=== PATIENT | male | born 1945 | race Caucasian/White ===

== ENCOUNTER 2020-05-09 09:11 | Inpatient (IN) ==
[2020-05-09 10:42] LABS: Basophils # 0.1 10*3/uL (0.0-0.2); Basophils % 0.2 % (0.0-0.8); Hematocrit 43.9 VOL% (42.0-52.0); Hemoglobin 14.8 GM/DL (14.0-18.0); Immature Granulocytes % 1.9 %; Immature Granulocytes Absolute 0.51 #; Lymphocytes # 0.7 10*3/uL (1.4-4.0); Lymphocytes % 2.4 % (21.2-54.2); Mean Corpuscular HGB Conc 33.7 GM/DL (32-36); Mean Corpuscular Volume 90.9 FL (87-102); Mean Platelet Volume 10.5 FL (9.6-12.0); Monocytes % 8.2 % (1.7-12.7); Neutrophils % 87.3 % (38.7-73.9); Platelet Count 252 T/CUMM (130-400); Red Blood Count 4.83 MC/CUMM (3.8-5.5); Red Cell Distribution Width 13.2 % (9.3-17.3); White Blood Count 27.5 T/CUMM (4-12)
[2020-05-09 11:00] LABS: Albumin 3.2 G/DL (3.4-5.0); Bilirubin,Total 1.3 MG/DL (0.2-1.0); Calcium 9.7 MG/DL (8.5-10.1); Osmolality,Calculated 285.8 MOS/KG (273-304); Total Protein 8.1 G/DL (6.4-8.3)
[2020-05-09 11:01] LABS: Band Neutrophils 1 % (0-10); Eosinophils 1 % (0-10); Lymphocytes 1 % (20-55); Platelet Estimate Adequate; Segmented Neutrophils 83 % (50-85); Total Cells Counted 100
[2020-05-09] MEDS ORDERED: PIPERACILLIN/TAZOBACTAM 3,375 MG in SODIUM CHLORIDE 0.9% 100 ML IV STA (11:03)
[2020-05-09] MEDS ORDERED: SODIUM CHLORIDE 0.9% 1,000 ML IV STA (11:09)
[2020-05-09] MEDS ORDERED: ONDANSETRON 4 MG/2 ML VIAL IV PRN (11:44)
[2020-05-09] MEDS ORDERED: HYDROmorphone 2 MG/1 ML VIAL IV PRN (11:44)
[2020-05-09] MEDS ORDERED: ALBUTEROL/IPRATROPIUM 3 ML NEB RESP TX PRN (11:44)
[2020-05-09] MEDS ORDERED: ACETAMINOPHEN 325 MG TABLET PO PRN (11:44)
[2020-05-09] MEDS ORDERED: BISACODYL 5 MG TABLET PO PRN (11:44)
[2020-05-09] MEDS ORDERED: FLUTICASONE 50 MCG NASAL SPRAY 16 GM BOTTLE BOTH NARES PRN (11:47)
[2020-05-09] MEDS ORDERED: DEXTROSE 50% 25 GM/50 ML VIAL IV PRN (11:47)
[2020-05-09] MEDS ORDERED: GLUCAGON 1 MG VIAL IM PRN (11:47)
[2020-05-09] MEDS ORDERED: SODIUM CHLORIDE 0.9% 1,000 ML IV ONE ×2 (12:00→18:42)
[2020-05-09] MEDS: INSULIN LISPRO 100 UNIT/ML SUBCUT SCH ×3 (12:32→20:51)
[2020-05-09 12:35] LABS: Apearance,Urine CLOUDY (Clear); Bilirubin,Urine Negative (Negative); Blood, Urine Negative (Negative); Glucose,Urine (UA) >=500 mg/dL (Negative); Hyaline Casts,Urine 1 /LPF (0-3); Ketones,Urine Negative (Negative); Mucus,Urine Occasional /LPF (Occasional); Nitrite,Urine Negative (Negative); Protein,Urine 100 MG/DL; RBC,Urine 7 /HPF (0-4); Squamous Epithelial Cell,Urine Occasional /HPF (0-10); Urine Color Amber (Yellow); Urine Specific Gravity 1.021 (1.001-1.035); WBC,Urine 4 /HPF (0-6)
[2020-05-09 14:52] LABS: Calcium 8.3 MG/DL (8.5-10.1); Osmolality,Calculated 287.4 MOS/KG (273-304)
[2020-05-09] MEDS ORDERED: LEVOFLOXACIN INJ 750 MG in PREMIX 1 EACH IV ONE (15:00)
[2020-05-09] MEDS ORDERED: ROPIVACAINE 0.5% 30 ML VIAL ONE (18:26)
[2020-05-09] MEDS: metroNIDAZOLE INJ 500 MG in PREMIX 1 EACH IV SCH (18:33)
[2020-05-09] MEDS ORDERED: propofoL 200 MG/20 ML VIAL IV ONE (18:41)
[2020-05-09] MEDS ORDERED: SEVOFLURANE 1 UNIT/15 MINUTE INH ONE (18:41)
[2020-05-09] MEDS ORDERED: LIDOCAINE 2% 5 ML VIAL ONE (18:41)
[2020-05-09] MEDS ORDERED: ONDANSETRON 4 MG/2 ML VIAL ONE (18:42)
[2020-05-09] MEDS ORDERED: PHENYLEPHRINE 10 MG/1 ML VIAL IV ONE (18:42)
[2020-05-09] MEDS ORDERED: ETOMIDATE 40 MG/20 ML VIAL IV ONE (18:42)
[2020-05-09] MEDS ORDERED: fentaNYL 100 MCG/2 ML VIAL ONE ×2 (18:42)
[2020-05-09] MEDS ORDERED: ROCURONIUM 100 MG/10 ML VIAL IV ONE (18:42)
[2020-05-09] MEDS ORDERED: LACTATED RINGERS 1,000 ML IV ONE (18:42)
[2020-05-09] MEDS ORDERED: LABETALOL 20 MG/4 ML SYRINGE IV ONE (19:04)
[2020-05-09 19:46] LABS: Allen Test Positive; Pt O2 Delivery Device Simple Mask
[2020-05-09 19:47] LABS: ABG Base Excess -4.4 MMOL/L (-2.5-2.5); ABG HCO3 20.7 MMOL/L (20-26); ABG Oxygen Saturation 94.6 % (95-100); ABG PCO2 40.6 MM HG (35-48); ABG PH 7.327 (7.35-7.45); ABG PO2 75.3 MM HG (80-95)
[2020-05-09] MEDS: traZODone 50 MG TABLET PO SCH (22:03)
[2020-05-10] MEDS: INSULIN LISPRO 100 UNIT/ML SUBCUT SCH ×6 (01:06→21:18)
[2020-05-10] MEDS: metroNIDAZOLE INJ 500 MG in PREMIX 1 EACH IV SCH ×3 (01:07→17:01)
[2020-05-10 05:30] LABS: Basophils % 0.1 % (0.0-0.8); Eosinophils % 0.1 % (0.00-10.9); Hematocrit 37.3 VOL% (42.0-52.0); Hemoglobin 12.5 GM/DL (14.0-18.0); Immature Granulocytes % 1.1 %; Immature Granulocytes Absolute 0.19 #; Lymphocytes # 0.7 10*3/uL (1.4-4.0); Lymphocytes % 4.1 % (21.2-54.2); Mean Corpuscular HGB Conc 33.5 GM/DL (32-36); Mean Corpuscular Volume 91.6 FL (87-102); Mean Platelet Volume 10.7 FL (9.6-12.0); Monocytes % 11.2 % (1.7-12.7); Neutrophils % 83.4 % (38.7-73.9); Platelet Count 235 T/CUMM (130-400); Red Blood Count 4.07 MC/CUMM (3.8-5.5); Red Cell Distribution Width 13.4 % (9.3-17.3); White Blood Count 16.6 T/CUMM (4-12)
[2020-05-10 06:02] LABS: Albumin 2.3 G/DL (3.4-5.0); Bilirubin,Total 1.3 MG/DL (0.2-1.0); Calcium 8.6 MG/DL (8.5-10.1); Osmolality,Calculated 289.8 MOS/KG (273-304); Total Protein 6.3 G/DL (6.4-8.3)
[2020-05-10 06:08] LABS: Band Neutrophils 1 % (0-10); Lymphocytes 6 % (20-55); Segmented Neutrophils 88 % (50-85)
[2020-05-10 06:09] LABS: Platelet Estimate Normal; Total Cells Counted 100
[2020-05-10] MEDS: amLODIPine 10 MG TABLET PO SCH (08:10)
[2020-05-10] MEDS: PANTOPRAZOLE 40 MG TABLET PO SCH (08:10)
[2020-05-10] MEDS: MONTELUKAST 10 MG TABLET PO SCH (08:10)
[2020-05-10] MEDS: ASPIRIN EC 81 MG TABLET PO SCH (08:10)
[2020-05-10] MEDS: traZODone 50 MG TABLET PO SCH (20:43)
[2020-05-11] MEDS: INSULIN LISPRO 100 UNIT/ML SUBCUT SCH ×6 (00:18→20:47)
[2020-05-11] MEDS: metroNIDAZOLE INJ 500 MG in PREMIX 1 EACH IV SCH ×3 (01:53→17:11)
[2020-05-11 06:42] LABS: Basophils # 0.1 10*3/uL (0.0-0.2); Basophils % 0.3 % (0.0-0.8); Eosinophils # 0.1 10*3/uL (0.0-0.87); Eosinophils % 0.4 % (0.00-10.9); Hematocrit 37.4 VOL% (42.0-52.0); Hemoglobin 12.4 GM/DL (14.0-18.0); Immature Granulocytes % 2.6 %; Immature Granulocytes Absolute 0.44 #; Lymphocytes # 0.9 10*3/uL (1.4-4.0); Lymphocytes % 5.4 % (21.2-54.2); Mean Corpuscular HGB Conc 33.2 GM/DL (32-36); Mean Corpuscular Volume 92.6 FL (87-102); Mean Platelet Volume 10.6 FL (9.6-12.0); Monocytes % 15.8 % (1.7-12.7); Neutrophils % 75.5 % (38.7-73.9); Platelet Count 277 T/CUMM (130-400); Red Blood Count 4.04 MC/CUMM (3.8-5.5); Red Cell Distribution Width 13.9 % (9.3-17.3); White Blood Count 17.1 T/CUMM (4-12)
[2020-05-11 07:06] LABS: Albumin 2.2 G/DL (3.4-5.0); Bilirubin,Total 2.1 MG/DL (0.2-1.0); Osmolality,Calculated 290.4 MOS/KG (273-304); Total Protein 6.4 G/DL (6.4-8.3)
[2020-05-11 07:09] LABS: Hypochromasia Slight; Lymphocytes 6 % (20-55); Platelet Estimate Adequate; Segmented Neutrophils 79 % (50-85); Total Cells Counted 100
[2020-05-11] MEDS ORDERED: LEVOFLOXACIN INJ 500 MG in PREMIX 1 EACH IV SCH (09:00)
[2020-05-11] MEDS: PANTOPRAZOLE 40 MG TABLET PO SCH (10:58)
[2020-05-11] MEDS: amLODIPine 10 MG TABLET PO SCH (10:58)
[2020-05-11] MEDS: MONTELUKAST 10 MG TABLET PO SCH (10:58)
[2020-05-11] MEDS: ASPIRIN EC 81 MG TABLET PO SCH (10:58)
[2020-05-11] MEDS: traZODone 50 MG TABLET PO SCH (20:47)
[2020-05-12] MEDS: metroNIDAZOLE INJ 500 MG in PREMIX 1 EACH IV SCH ×3 (01:17→18:20)
[2020-05-12] MEDS: INSULIN LISPRO 100 UNIT/ML SUBCUT SCH ×6 (01:18→22:17)
[2020-05-12 06:21] LABS: Basophils # 0.1 10*3/uL (0.0-0.2); Basophils % 0.3 % (0.0-0.8); Eosinophils # 0.1 10*3/uL (0.0-0.87); Eosinophils % 0.8 % (0.00-10.9); Hematocrit 38.4 VOL% (42.0-52.0); Hemoglobin 12.8 GM/DL (14.0-18.0); Immature Granulocytes % 1.4 %; Immature Granulocytes Absolute 0.21 #; Lymphocytes % 6.4 % (21.2-54.2); Mean Corpuscular HGB Conc 33.3 GM/DL (32-36); Mean Corpuscular Volume 91.4 FL (87-102); Mean Platelet Volume 10.2 FL (9.6-12.0); Monocytes % 12.8 % (1.7-12.7); Neutrophils % 78.3 % (38.7-73.9); Platelet Count 274 T/CUMM (130-400); White Blood Count 14.8 T/CUMM (4-12)
[2020-05-12 07:05] LABS: Albumin 2.2 G/DL (3.4-5.0); Bilirubin,Total 0.9 MG/DL (0.2-1.0); Osmolality,Calculated 287.5 MOS/KG (273-304); Total Protein 6.5 G/DL (6.4-8.3)
[2020-05-12] MEDS: POTASSIUM CHLORIDE 20 MEQ TABLET PO PRN (09:30)
[2020-05-12] MEDS: ASPIRIN EC 81 MG TABLET PO SCH (09:31)
[2020-05-12] MEDS: amLODIPine 10 MG TABLET PO SCH (09:31)
[2020-05-12] MEDS: MONTELUKAST 10 MG TABLET PO SCH (09:31)
[2020-05-12] MEDS: PANTOPRAZOLE 40 MG TABLET PO SCH (09:31)
[2020-05-12] MEDS ORDERED: hydrALAZINE 20 MG/1 ML VIAL IV PRN (12:44)
[2020-05-12] MEDS: traZODone 50 MG TABLET PO SCH (22:16)
[2020-05-13] MEDS: metroNIDAZOLE INJ 500 MG in PREMIX 1 EACH IV SCH ×4 (00:28→19:52)
[2020-05-13] MEDS: INSULIN LISPRO 100 UNIT/ML SUBCUT SCH ×6 (04:00→20:32)
[2020-05-13 05:19] LABS: Basophils # 0.1 10*3/uL (0.0-0.2); Basophils % 0.5 % (0.0-0.8); Eosinophils # 0.2 10*3/uL (0.0-0.87); Hematocrit 38.2 VOL% (42.0-52.0); Hemoglobin 12.7 GM/DL (14.0-18.0); Immature Granulocytes % 2.1 %; Immature Granulocytes Absolute 0.42 #; Lymphocytes # 1.1 10*3/uL (1.4-4.0); Lymphocytes % 5.5 % (21.2-54.2); Mean Corpuscular HGB Conc 33.2 GM/DL (32-36); Mean Corpuscular Volume 91.4 FL (87-102); Mean Platelet Volume 10.4 FL (9.6-12.0); Neutrophils % 77.9 % (38.7-73.9); Platelet Count 314 T/CUMM (130-400); Red Blood Count 4.18 MC/CUMM (3.8-5.5); Red Cell Distribution Width 13.8 % (9.3-17.3); White Blood Count 19.7 T/CUMM (4-12)
[2020-05-13 06:05] LABS: Calcium 8.8 MG/DL (8.5-10.1); Osmolality,Calculated 282.8 MOS/KG (273-304)
[2020-05-13] MEDS ORDERED: MAGNESIUM SULF RIDER 2 GM in PREMIX 1 EACH IV ONE (07:12)
[2020-05-13] MEDS: PANTOPRAZOLE 40 MG TABLET PO SCH (08:42)
[2020-05-13] MEDS: glipiZIDE 5 MG TABLET PO SCH ×2 (08:42→16:59)
[2020-05-13] MEDS: CIPROFLOXACIN INJ 400 MG in PREMIX 1 EACH IV SCH ×2 (08:42→19:51)
[2020-05-13] MEDS: allopurinoL 100 MG TABLET PO SCH (08:42)
[2020-05-13] MEDS: amLODIPine 10 MG TABLET PO SCH (08:42)
[2020-05-13] MEDS: MONTELUKAST 10 MG TABLET PO SCH (08:42)
[2020-05-13] MEDS: ASPIRIN EC 81 MG TABLET PO SCH (08:42)
[2020-05-13] MEDS: lisinopriL 20 MG TABLET PO SCH (12:50)
[2020-05-13] MEDS: VANCOMYCIN INJ 1,250 MG in SODIUM CHLORIDE 0.9% 250 ML IV SCH (14:30)
[2020-05-13] MEDS: HYDROmorphone 2 MG/1 ML VIAL IV PRN ×3 (19:48→23:01)
[2020-05-13] MEDS: traZODone 50 MG TABLET PO SCH (20:31)
[2020-05-14] MEDS: HYDROmorphone 2 MG/1 ML VIAL IV PRN ×6 (00:10→22:09)
[2020-05-14] MEDS: INSULIN LISPRO 100 UNIT/ML SUBCUT SCH ×6 (00:48→21:06)
[2020-05-14] MEDS: VANCOMYCIN INJ 1,250 MG in SODIUM CHLORIDE 0.9% 250 ML IV SCH ×2 (02:22→21:11)
[2020-05-14] MEDS: metroNIDAZOLE INJ 500 MG in PREMIX 1 EACH IV SCH ×3 (04:29→21:04)
[2020-05-14 05:24] LABS: Basophils # 0.1 10*3/uL (0.0-0.2); Basophils % 0.4 % (0.0-0.8); Eosinophils # 0.2 10*3/uL (0.0-0.87); Hematocrit 35.8 VOL% (42.0-52.0); Hemoglobin 12.1 GM/DL (14.0-18.0); Immature Granulocytes % 4.8 %; Immature Granulocytes Absolute 1.11 #; Lymphocytes # 1.2 10*3/uL (1.4-4.0); Mean Corpuscular HGB Conc 33.8 GM/DL (32-36); Mean Corpuscular Volume 89.5 FL (87-102); Mean Platelet Volume 10.3 FL (9.6-12.0); Monocytes % 12.6 % (1.7-12.7); Neutrophils % 76.2 % (38.7-73.9); Platelet Count 360 T/CUMM (130-400); Red Cell Distribution Width 13.9 % (9.3-17.3); White Blood Count 23.2 T/CUMM (4-12)
[2020-05-14] MEDS: CIPROFLOXACIN INJ 400 MG in PREMIX 1 EACH IV SCH ×2 (05:48→20:18)
[2020-05-14 05:51] LABS: Calcium 8.6 MG/DL (8.5-10.1); Osmolality,Calculated 280.8 MOS/KG (273-304)
[2020-05-14 06:03] LABS: Eosinophils 2 % (0-10); Lymphocytes 2 % (20-55); Platelet Estimate Adequate; Segmented Neutrophils 90 % (50-85); Total Cells Counted 100
[2020-05-14] MEDS: ASPIRIN EC 81 MG TABLET PO SCH (09:04)
[2020-05-14] MEDS: glipiZIDE 5 MG TABLET PO SCH ×2 (09:04→17:23)
[2020-05-14] MEDS: MONTELUKAST 10 MG TABLET PO SCH (09:04)
[2020-05-14] MEDS: amLODIPine 10 MG TABLET PO SCH (09:04)
[2020-05-14] MEDS: lisinopriL 20 MG TABLET PO SCH (09:04)
[2020-05-14] MEDS: PANTOPRAZOLE 40 MG TABLET PO SCH (09:04)
[2020-05-14] MEDS: CHOLECALCIFEROL 1,000 UNIT TABLET PO SCH (09:05)
[2020-05-14] MEDS: allopurinoL 100 MG TABLET PO SCH (09:05)
[2020-05-14] MEDS ORDERED: fentaNYL 100 MCG/2 ML VIAL IV ONE (12:46)
[2020-05-14] MEDS ORDERED: MIDAZOLAM 2 MG/2 ML VIAL IV ONE (12:46)
[2020-05-14] MEDS ORDERED: DIAZEPAM 5 MG TABLET PO ONE (12:46)
[2020-05-14] MEDS ORDERED: MAGNESIUM SULF RIDER 2 GM in PREMIX 1 EACH IV ONE (12:55)
[2020-05-14] MEDS: SODIUM CHLORIDE 0.45% 1,000 ML IV SCH (14:30)
[2020-05-14] MEDS: traZODone 50 MG TABLET PO SCH (21:05)
[2020-05-15] MEDS: INSULIN LISPRO 100 UNIT/ML SUBCUT SCH ×6 (00:35→22:10)
[2020-05-15] MEDS: HYDROmorphone 2 MG/1 ML VIAL IV PRN ×2 (00:48→02:47)
[2020-05-15] MEDS: metroNIDAZOLE INJ 500 MG in PREMIX 1 EACH IV SCH ×2 (03:41→14:00)
[2020-05-15 05:47] LABS: Basophils # 0.1 10*3/uL (0.0-0.2); Basophils % 0.6 % (0.0-0.8); Eosinophils # 0.4 10*3/uL (0.0-0.87); Eosinophils % 1.6 % (0.00-10.9); Hemoglobin 11.5 GM/DL (14.0-18.0); Immature Granulocytes % 5.6 %; Lymphocytes # 1.3 10*3/uL (1.4-4.0); Lymphocytes % 6.2 % (21.2-54.2); Mean Corpuscular HGB Conc 32.9 GM/DL (32-36); Mean Corpuscular Volume 90.7 FL (87-102); Mean Platelet Volume 10.2 FL (9.6-12.0); Monocytes % 10.1 % (1.7-12.7); Neutrophils % 75.9 % (38.7-73.9); Platelet Count 409 T/CUMM (130-400); Red Blood Count 3.86 MC/CUMM (3.8-5.5); Red Cell Distribution Width 13.7 % (9.3-17.3); White Blood Count 21.3 T/CUMM (4-12)
[2020-05-15] MEDS: CIPROFLOXACIN INJ 400 MG in PREMIX 1 EACH IV SCH ×2 (06:06→22:10)
[2020-05-15 06:11] LABS: Bilirubin,Total 0.7 MG/DL (0.2-1.0); Calcium 8.5 MG/DL (8.5-10.1); Osmolality,Calculated 282.8 MOS/KG (273-304)
[2020-05-15 06:26] LABS: Band Neutrophils 3 % (0-10); Eosinophils 2 % (0-10); Lymphocytes 6 % (20-55); Metamyelocytes 3 %; Segmented Neutrophils 75 % (50-85); Total Cells Counted 100
[2020-05-15 06:27] LABS: Hypochromasia Slight; Platelet Estimate Normal
[2020-05-15] MEDS: lisinopriL 20 MG TABLET PO SCH (09:35)
[2020-05-15] MEDS: CHOLECALCIFEROL 1,000 UNIT TABLET PO SCH (09:35)
[2020-05-15] MEDS: amLODIPine 10 MG TABLET PO SCH (09:35)
[2020-05-15] MEDS: ASPIRIN EC 81 MG TABLET PO SCH (09:35)
[2020-05-15] MEDS: MONTELUKAST 10 MG TABLET PO SCH (09:35)
[2020-05-15] MEDS: allopurinoL 100 MG TABLET PO SCH (09:35)
[2020-05-15] MEDS: PANTOPRAZOLE 40 MG TABLET PO SCH (09:35)
[2020-05-15] MEDS: glipiZIDE 5 MG TABLET PO SCH ×2 (09:36→17:37)
[2020-05-15] MEDS: VANCOMYCIN INJ 1,250 MG in SODIUM CHLORIDE 0.9% 250 ML IV SCH (09:49)
[2020-05-15] MEDS: SODIUM CHLORIDE 0.45% 1,000 ML IV SCH (15:32)
[2020-05-15] MEDS: traZODone 50 MG TABLET PO SCH (22:10)
[2020-05-16] MEDS: metroNIDAZOLE INJ 500 MG in PREMIX 1 EACH IV SCH ×4 (00:33→22:02)
[2020-05-16] MEDS: INSULIN LISPRO 100 UNIT/ML SUBCUT SCH ×6 (01:03→22:03)
[2020-05-16] MEDS: VANCOMYCIN INJ 1,250 MG in SODIUM CHLORIDE 0.9% 250 ML IV SCH ×2 (01:34→15:15)
[2020-05-16 04:04] LABS: Basophils # 0.1 10*3/uL (0.0-0.2); Basophils % 0.4 % (0.0-0.8); Eosinophils # 0.1 10*3/uL (0.0-0.87); Eosinophils % 0.5 % (0.00-10.9); Hematocrit 36.5 VOL% (42.0-52.0); Hemoglobin 12.2 GM/DL (14.0-18.0); Immature Granulocytes % 4.5 %; Immature Granulocytes Absolute 1.22 #; Lymphocytes # 1.2 10*3/uL (1.4-4.0); Lymphocytes % 4.4 % (21.2-54.2); Mean Corpuscular HGB Conc 33.4 GM/DL (32-36); Mean Corpuscular Volume 90.1 FL (87-102); Mean Platelet Volume 10.1 FL (9.6-12.0); Monocytes % 10.1 % (1.7-12.7); Neutrophils % 80.1 % (38.7-73.9); Platelet Count 466 T/CUMM (130-400); Red Blood Count 4.05 MC/CUMM (3.8-5.5); Red Cell Distribution Width 13.7 % (9.3-17.3)
[2020-05-16 04:14] LABS: INR 1.2; PT Patient Result 12.4 SECS (9.8-11.9)
[2020-05-16 04:52] LABS: Band Neutrophils 3 % (0-10); Eosinophils 2 % (0-10); Lymphocytes 2 % (20-55); Metamyelocytes 1 %; Segmented Neutrophils 80 % (50-85); Total Cells Counted 100
[2020-05-16 04:53] LABS: Hypochromasia Slight
[2020-05-16 04:54] LABS: Platelet Estimate Increased
[2020-05-16] MEDS: CIPROFLOXACIN INJ 400 MG in PREMIX 1 EACH IV SCH ×2 (06:08→18:29)
[2020-05-16] MEDS ORDERED: INDOMETHACIN SUPP 50 MG SUPP RECTAL ONE ×2 (08:00→08:45)
[2020-05-16] MEDS: LACTATED RINGERS 1,000 ML IV SCH (08:11)
[2020-05-16] MEDS ORDERED: fentaNYL 100 MCG/2 ML VIAL ONE (08:37)
[2020-05-16] MEDS ORDERED: LIDOCAINE 2% 5 ML VIAL ONE (09:00)
[2020-05-16] MEDS ORDERED: propofoL 200 MG/20 ML VIAL IV ONE (09:00)
[2020-05-16] MEDS ORDERED: SUCCINYLCHOLINE 200 MG/10 ML VIAL ONE (09:00)
[2020-05-16] MEDS ORDERED: ROCURONIUM 100 MG/10 ML VIAL IV ONE (09:00)
[2020-05-16] MEDS: lisinopriL 20 MG TABLET PO SCH (12:23)
[2020-05-16] MEDS: MONTELUKAST 10 MG TABLET PO SCH (12:23)
[2020-05-16] MEDS: ASPIRIN EC 81 MG TABLET PO SCH (12:23)
[2020-05-16] MEDS: CHOLECALCIFEROL 1,000 UNIT TABLET PO SCH (12:23)
[2020-05-16] MEDS: amLODIPine 10 MG TABLET PO SCH (12:24)
[2020-05-16] MEDS: PANTOPRAZOLE 40 MG TABLET PO SCH (12:24)
[2020-05-16] MEDS: allopurinoL 100 MG TABLET PO SCH (12:24)
[2020-05-16] MEDS: glipiZIDE 5 MG TABLET PO SCH ×2 (12:24→17:51)
[2020-05-16] MEDS: INSULIN GLARGINE 100 UNIT/ML SUBCUT SCH (22:02)
[2020-05-16] MEDS: traZODone 50 MG TABLET PO SCH (22:02)
[2020-05-17] MEDS: INSULIN LISPRO 100 UNIT/ML SUBCUT SCH ×6 (00:33→21:46)
[2020-05-17] MEDS: VANCOMYCIN INJ 1,250 MG in SODIUM CHLORIDE 0.9% 250 ML IV SCH ×3 (02:26→21:16)
[2020-05-17] MEDS: metroNIDAZOLE INJ 500 MG in PREMIX 1 EACH IV SCH (04:13)
[2020-05-17] MEDS: CIPROFLOXACIN INJ 400 MG in PREMIX 1 EACH IV SCH (06:29)
[2020-05-17 07:24] LABS: Basophils # 0.1 10*3/uL (0.0-0.2); Basophils % 0.4 % (0.0-0.8); Eosinophils # 0.2 10*3/uL (0.0-0.87); Eosinophils % 0.8 % (0.00-10.9); Hematocrit 32.9 VOL% (42.0-52.0); Hemoglobin 11.2 GM/DL (14.0-18.0); Immature Granulocytes % 3.3 %; Immature Granulocytes Absolute 0.89 #; Lymphocytes # 1.4 10*3/uL (1.4-4.0); Lymphocytes % 5.3 % (21.2-54.2); Mean Corpuscular Volume 90.1 FL (87-102); Mean Platelet Volume 9.6 FL (9.6-12.0); Monocytes % 8.6 % (1.7-12.7); Neutrophils % 81.6 % (38.7-73.9); Platelet Count 478 T/CUMM (130-400); Red Blood Count 3.65 MC/CUMM (3.8-5.5); Red Cell Distribution Width 13.8 % (9.3-17.3); White Blood Count 26.6 T/CUMM (4-12)
[2020-05-17 08:20] LABS: Calcium 8.1 MG/DL (8.5-10.1); Osmolality,Calculated 280.7 MOS/KG (273-304)
[2020-05-17] MEDS: PANTOPRAZOLE 40 MG TABLET PO SCH (08:50)
[2020-05-17] MEDS: allopurinoL 100 MG TABLET PO SCH (08:50)
[2020-05-17] MEDS: lisinopriL 20 MG TABLET PO SCH (08:50)
[2020-05-17] MEDS: MONTELUKAST 10 MG TABLET PO SCH (08:50)
[2020-05-17] MEDS: ASPIRIN EC 81 MG TABLET PO SCH (08:50)
[2020-05-17] MEDS: CHOLECALCIFEROL 1,000 UNIT TABLET PO SCH (08:50)
[2020-05-17] MEDS: glipiZIDE 5 MG TABLET PO SCH ×2 (08:50→16:10)
[2020-05-17] MEDS: amLODIPine 10 MG TABLET PO SCH (08:50)
[2020-05-17] MEDS: LACTATED RINGERS 1,000 ML IV SCH (08:51)
[2020-05-17] MEDS: MEROPENEM 500 MG in SODIUM CHLORIDE 0.9% 100 ML IV SCH ×2 (11:58→16:30)
[2020-05-17 12:23] LABS: Band Neutrophils 2 % (0-10); Eosinophils 1 % (0-10); Lymphocytes 2 % (20-55); Segmented Neutrophils 88 % (50-85); Total Cells Counted 100
[2020-05-17 12:26] LABS: Hypochromasia 1+; Platelet Estimate Increased; Polychromasia Slight
[2020-05-17] MEDS: ALBUTEROL/IPRATROPIUM 3 ML NEB RESP TX SCH ×2 (14:09→19:13)
[2020-05-17] MEDS: hydrALAZINE 25 MG TABLET PO SCH ×2 (16:10→21:15)
[2020-05-17] MEDS: traZODone 50 MG TABLET PO SCH (21:15)
[2020-05-17] MEDS: INSULIN GLARGINE 100 UNIT/ML SUBCUT SCH (21:15)
[2020-05-18] MEDS: ALBUTEROL/IPRATROPIUM 3 ML NEB RESP TX SCH ×4 (01:39→18:53)
[2020-05-18] MEDS: MEROPENEM 500 MG in SODIUM CHLORIDE 0.9% 100 ML IV SCH ×5 (04:15→22:36)
[2020-05-18] MEDS: SODIUM CHLORIDE 0.9% 1,000 ML IV SCH ×2 (04:26→14:42)
[2020-05-18 05:52] LABS: Basophils # 0.1 10*3/uL (0.0-0.2); Basophils % 0.4 % (0.0-0.8); Eosinophils # 0.1 10*3/uL (0.0-0.87); Eosinophils % 0.5 % (0.00-10.9); Hemoglobin 11.4 GM/DL (14.0-18.0); Immature Granulocytes % 3.2 %; Immature Granulocytes Absolute 0.83 #; Lymphocytes # 1.2 10*3/uL (1.4-4.0); Lymphocytes % 4.7 % (21.2-54.2); Mean Corpuscular HGB Conc 33.5 GM/DL (32-36); Mean Corpuscular Volume 90.4 FL (87-102); Mean Platelet Volume 9.6 FL (9.6-12.0); Monocytes % 8.5 % (1.7-12.7); Neutrophils % 82.7 % (38.7-73.9); Platelet Count 551 T/CUMM (130-400); Red Blood Count 3.76 MC/CUMM (3.8-5.5); Red Cell Distribution Width 13.8 % (9.3-17.3); White Blood Count 25.5 T/CUMM (4-12)
[2020-05-18 06:29] LABS: Calcium 8.2 MG/DL (8.5-10.1); Osmolality,Calculated 281.4 MOS/KG (273-304)
[2020-05-18 06:43] LABS: Eosinophils 2 % (0-10); Lymphocytes 7 % (20-55); Metamyelocytes 1 %; Segmented Neutrophils 82 % (50-85); Total Cells Counted 100
[2020-05-18 06:44] LABS: Hypochromasia 1+; Microcytosis 1+; Platelet Estimate Increased
[2020-05-18] MEDS ORDERED: MAGNESIUM SULF RIDER 2 GM in PREMIX 1 EACH IV ONE (07:31)
[2020-05-18] MEDS: INSULIN LISPRO 100 UNIT/ML SUBCUT SCH ×4 (08:32→21:16)
[2020-05-18] MEDS: POTASSIUM CHLORIDE 20 MEQ TABLET PO PRN ×4 (09:09→17:40)
[2020-05-18] MEDS: amLODIPine 10 MG TABLET PO SCH (09:09)
[2020-05-18] MEDS: hydrALAZINE 25 MG TABLET PO SCH (09:09)
[2020-05-18] MEDS: PANTOPRAZOLE 40 MG TABLET PO SCH (09:09)
[2020-05-18] MEDS: CHOLECALCIFEROL 1,000 UNIT TABLET PO SCH (09:09)
[2020-05-18] MEDS: ASPIRIN EC 81 MG TABLET PO SCH (09:10)
[2020-05-18] MEDS: allopurinoL 100 MG TABLET PO SCH (09:10)
[2020-05-18] MEDS: glipiZIDE 5 MG TABLET PO SCH ×2 (09:10→17:35)
[2020-05-18] MEDS: MONTELUKAST 10 MG TABLET PO SCH (09:10)
[2020-05-18] MEDS: VANCOMYCIN INJ 1,250 MG in SODIUM CHLORIDE 0.9% 250 ML IV SCH (15:18)
[2020-05-18] MEDS: traZODone 50 MG TABLET PO SCH (21:15)
[2020-05-18] MEDS: INSULIN GLARGINE 100 UNIT/ML SUBCUT SCH (21:16)
[2020-05-19] MEDS: ALBUTEROL/IPRATROPIUM 3 ML NEB RESP TX SCH ×5 (01:14→19:32)
[2020-05-19] MEDS: SODIUM CHLORIDE 0.9% 1,000 ML IV SCH ×2 (02:12→17:33)
[2020-05-19] MEDS: MEROPENEM 500 MG in SODIUM CHLORIDE 0.9% 100 ML IV SCH ×4 (04:44→22:59)
[2020-05-19 06:12] LABS: Basophils # 0.1 10*3/uL (0.0-0.2); Basophils % 0.5 % (0.0-0.8); Eosinophils # 0.4 10*3/uL (0.0-0.87); Eosinophils % 1.5 % (0.00-10.9); Immature Granulocytes % 2.6 %; Immature Granulocytes Absolute 0.63 #; Lymphocytes # 1.6 10*3/uL (1.4-4.0); Lymphocytes % 6.6 % (21.2-54.2); Mean Corpuscular HGB Conc 33.3 GM/DL (32-36); Mean Corpuscular Volume 89.9 FL (87-102); Mean Platelet Volume 9.4 FL (9.6-12.0); Monocytes % 9.6 % (1.7-12.7); Neutrophils % 79.2 % (38.7-73.9); Platelet Count 636 T/CUMM (130-400); Red Blood Count 3.67 MC/CUMM (3.8-5.5); White Blood Count 24.1 T/CUMM (4-12)
[2020-05-19 06:32] LABS: Osmolality,Calculated 284.3 MOS/KG (273-304)
[2020-05-19 06:40] LABS: Band Neutrophils 1 % (0-10); Lymphocytes 12 % (20-55); Platelet Estimate Increased; Segmented Neutrophils 79 % (50-85); Total Cells Counted 100
[2020-05-19] MEDS: INSULIN LISPRO 100 UNIT/ML SUBCUT SCH ×4 (09:29→20:46)
[2020-05-19] MEDS: allopurinoL 100 MG TABLET PO SCH (10:03)
[2020-05-19] MEDS: CHOLECALCIFEROL 1,000 UNIT TABLET PO SCH (10:03)
[2020-05-19] MEDS: glipiZIDE 5 MG TABLET PO SCH ×2 (10:04→17:32)
[2020-05-19] MEDS: MONTELUKAST 10 MG TABLET PO SCH (10:04)
[2020-05-19] MEDS: ASPIRIN EC 81 MG TABLET PO SCH (10:04)
[2020-05-19] MEDS: VANCOMYCIN INJ 1,250 MG in SODIUM CHLORIDE 0.9% 250 ML IV SCH (10:04)
[2020-05-19] MEDS: PANTOPRAZOLE 40 MG TABLET PO SCH (10:04)
[2020-05-19] MEDS: INSULIN GLARGINE 100 UNIT/ML SUBCUT SCH (20:47)
[2020-05-19] MEDS: traZODone 50 MG TABLET PO SCH (21:12)
[2020-05-20] MEDS: ALBUTEROL/IPRATROPIUM 3 ML NEB RESP TX SCH ×4 (01:47→19:27)
[2020-05-20] MEDS: MEROPENEM 500 MG in SODIUM CHLORIDE 0.9% 100 ML IV SCH ×4 (04:07→22:00)
[2020-05-20] MEDS: VANCOMYCIN INJ 1,250 MG in SODIUM CHLORIDE 0.9% 250 ML IV SCH ×2 (04:40→23:05)
[2020-05-20 05:37] LABS: Basophils # 0.2 10*3/uL (0.0-0.2); Basophils % 0.6 % (0.0-0.8); Eosinophils # 0.4 10*3/uL (0.0-0.87); Eosinophils % 1.8 % (0.00-10.9); Hematocrit 36.6 VOL% (42.0-52.0); Hemoglobin 11.9 GM/DL (14.0-18.0); Immature Granulocytes % 2.5 %; Immature Granulocytes Absolute 0.58 #; Lymphocytes # 1.4 10*3/uL (1.4-4.0); Mean Corpuscular HGB Conc 32.5 GM/DL (32-36); Mean Corpuscular Volume 90.4 FL (87-102); Mean Platelet Volume 9.5 FL (9.6-12.0); Monocytes % 8.6 % (1.7-12.7); Neutrophils % 80.5 % (38.7-73.9); Platelet Count 767 T/CUMM (130-400); Red Blood Count 4.05 MC/CUMM (3.8-5.5); White Blood Count 23.5 T/CUMM (4-12)
[2020-05-20 06:04] LABS: Calcium 8.8 MG/DL (8.5-10.1); Osmolality,Calculated 282.5 MOS/KG (273-304)
[2020-05-20 06:06] LABS: Band Neutrophils 1 % (0-10); Eosinophils 1 % (0-10); Hypochromasia 1+; Lymphocytes 7 % (20-55); Microcytosis Slight; Platelet Estimate Increased; Segmented Neutrophils 83 % (50-85); Total Cells Counted 100
[2020-05-20] MEDS: SODIUM CHLORIDE 0.9% 1,000 ML IV SCH ×3 (08:00→22:01)
[2020-05-20] MEDS: INSULIN LISPRO 100 UNIT/ML SUBCUT SCH ×4 (08:47→20:54)
[2020-05-20] MEDS: glipiZIDE 5 MG TABLET PO SCH ×2 (08:50→16:12)
[2020-05-20] MEDS: ASPIRIN EC 81 MG TABLET PO SCH (08:51)
[2020-05-20] MEDS: CHOLECALCIFEROL 1,000 UNIT TABLET PO SCH (08:53)
[2020-05-20] MEDS: MONTELUKAST 10 MG TABLET PO SCH (08:53)
[2020-05-20] MEDS: PANTOPRAZOLE 40 MG TABLET PO SCH (08:53)
[2020-05-20] MEDS: allopurinoL 100 MG TABLET PO SCH (08:54)
[2020-05-20] MEDS: traZODone 50 MG TABLET PO SCH (20:54)
[2020-05-20] MEDS: INSULIN GLARGINE 100 UNIT/ML SUBCUT SCH (20:55)
[2020-05-21] MEDS: ALBUTEROL/IPRATROPIUM 3 ML NEB RESP TX SCH ×4 (04:02→19:10)
[2020-05-21] MEDS: MEROPENEM 500 MG in SODIUM CHLORIDE 0.9% 100 ML IV SCH ×4 (04:43→22:01)
[2020-05-21 06:03] LABS: Basophils # 0.2 10*3/uL (0.0-0.2); Basophils % 0.9 % (0.0-0.8); Eosinophils # 0.4 10*3/uL (0.0-0.87); Eosinophils % 2.1 % (0.00-10.9); Hematocrit 35.9 VOL% (42.0-52.0); Hemoglobin 11.7 GM/DL (14.0-18.0); Immature Granulocytes Absolute 0.37 #; Lymphocytes # 1.8 10*3/uL (1.4-4.0); Lymphocytes % 9.9 % (21.2-54.2); Mean Corpuscular HGB Conc 32.6 GM/DL (32-36); Mean Corpuscular Volume 88.9 FL (87-102); Mean Platelet Volume 9.6 FL (9.6-12.0); Monocytes % 10.4 % (1.7-12.7); Neutrophils % 74.7 % (38.7-73.9); Platelet Count 807 T/CUMM (130-400); Red Blood Count 4.04 MC/CUMM (3.8-5.5); White Blood Count 18.7 T/CUMM (4-12)
[2020-05-21 06:21] LABS: Calcium 8.4 MG/DL (8.5-10.1); Osmolality,Calculated 286.1 MOS/KG (273-304)
[2020-05-21] MEDS: SODIUM CHLORIDE 0.9% 1,000 ML IV SCH ×3 (08:01→21:07)
[2020-05-21] MEDS: glipiZIDE 5 MG TABLET PO SCH ×2 (10:10→17:48)
[2020-05-21] MEDS: allopurinoL 100 MG TABLET PO SCH (10:10)
[2020-05-21] MEDS: CHOLECALCIFEROL 1,000 UNIT TABLET PO SCH (10:10)
[2020-05-21] MEDS: ASPIRIN EC 81 MG TABLET PO SCH (10:10)
[2020-05-21] MEDS: PANTOPRAZOLE 40 MG TABLET PO SCH (10:10)
[2020-05-21] MEDS: MONTELUKAST 10 MG TABLET PO SCH (10:10)
[2020-05-21] MEDS: INSULIN LISPRO 100 UNIT/ML SUBCUT SCH ×4 (10:12→21:04)
[2020-05-21] MEDS ORDERED: DEXTROSE 50% 25 GM/50 ML VIAL IV PRN (15:42)
[2020-05-21] MEDS: VANCOMYCIN INJ 1,250 MG in SODIUM CHLORIDE 0.9% 250 ML IV SCH (18:20)
[2020-05-21] MEDS: INSULIN GLARGINE 100 UNIT/ML SUBCUT SCH (21:04)
[2020-05-21] MEDS: traZODone 50 MG TABLET PO SCH (21:05)
[2020-05-22] MEDS: ALBUTEROL/IPRATROPIUM 3 ML NEB RESP TX SCH ×3 (00:55→08:55)
[2020-05-22] MEDS: MEROPENEM 500 MG in SODIUM CHLORIDE 0.9% 100 ML IV SCH (04:23)
[2020-05-22 05:10] LABS: Basophils # 0.1 10*3/uL (0.0-0.2); Basophils % 0.7 % (0.0-0.8); Eosinophils # 0.3 10*3/uL (0.0-0.87); Hematocrit 30.6 VOL% (42.0-52.0); Hemoglobin 10.2 GM/DL (14.0-18.0); Immature Granulocytes % 1.3 %; Lymphocytes # 1.4 10*3/uL (1.4-4.0); Lymphocytes % 8.8 % (21.2-54.2); Mean Corpuscular HGB Conc 33.3 GM/DL (32-36); Mean Corpuscular Volume 90.3 FL (87-102); Mean Platelet Volume 9.5 FL (9.6-12.0); Monocytes % 10.8 % (1.7-12.7); Neutrophils % 76.4 % (38.7-73.9); Platelet Count 667 T/CUMM (130-400); Red Blood Count 3.39 MC/CUMM (3.8-5.5); Red Cell Distribution Width 14.1 % (9.3-17.3); White Blood Count 15.8 T/CUMM (4-12)
[2020-05-22] MEDS: SODIUM CHLORIDE 0.9% 1,000 ML IV SCH (05:47)
[2020-05-22 08:13] VITALS: BP 144/73
[2020-05-22] MEDS: INSULIN LISPRO 100 UNIT/ML SUBCUT SCH (08:50)
[2020-05-22] MEDS: allopurinoL 100 MG TABLET PO SCH (08:51)
[2020-05-22] MEDS: glipiZIDE 5 MG TABLET PO SCH (08:51)
[2020-05-22] MEDS: CHOLECALCIFEROL 1,000 UNIT TABLET PO SCH (08:51)
[2020-05-22] MEDS: MONTELUKAST 10 MG TABLET PO SCH (08:51)
[2020-05-22] MEDS: PANTOPRAZOLE 40 MG TABLET PO SCH (08:51)
[2020-05-22] MEDS: ASPIRIN EC 81 MG TABLET PO SCH (08:51)
[2020-05-22] MEDS ORDERED: metroNIDAZOLE 500 MG TABLET PO SCH (15:00)
[2020-05-22] MEDS ORDERED: CIPROFLOXACIN 500 MG TABLET PO SCH (21:00)
== END 2020-05-22 10:58 | disposition swing bed (61) | DRG 853 ==
LOC: EDUNIT# → EDBD → N.ED 09:11 → N.EDINP 11:44 → N.TELES 12:14
PROVIDERS: ADMIT Student in an Organized Health Care Education/Training Program; ATTEND Student in an Organized Health Care Education/Training Program
PROC: LAPCHOL (2020-05-09 15:38)

== ENCOUNTER 2022-02-09 09:12 | Inpatient (IN) ==
[2022-02-09] MEDS ORDERED: PANTOPRAZOLE 40 MG VIAL IV STA (09:43)
[2022-02-09] MEDS ORDERED: SODIUM CHLORIDE 0.9% 1,000 ML IV STA (09:43)
[2022-02-09] MEDS ORDERED: ONDANSETRON 4 MG/2 ML VIAL IV STA (09:43)
[2022-02-09 10:43] LABS: Basophils # 0.1 10*3/uL (0.0-0.2); Basophils % 0.4 % (0.0-0.8); Eosinophils # 0.2 10*3/uL (0.0-0.87); Eosinophils % 1.2 % (0.00-10.9); Hematocrit 39.8 VOL% (42.0-52.0); Hemoglobin 13.4 GM/DL (14.0-18.0); Immature Granulocytes % 0.5 %; Immature Granulocytes Absolute 0.07 #; Lymphocytes # 1.1 10*3/uL (1.4-4.0); Lymphocytes % 7.4 % (21.2-54.2); Mean Corpuscular HGB Conc 33.7 GM/DL (32-36); Mean Corpuscular Volume 86.7 FL (87-102); Mean Platelet Volume 10.9 FL (9.6-12.0); Monocytes # 1.5 10*3/uL (0.11-0.8); Monocytes % 9.7 % (1.7-12.7); Neutrophils % 80.8 % (38.7-73.9); Platelet Count 371 T/CUMM (130-400); Red Blood Count 4.59 MC/CUMM (3.8-5.5); Red Cell Distribution Width 12.6 % (9.3-17.3); White Blood Count 15.2 T/CUMM (4-12)
[2022-02-09] MEDS ORDERED: CLINDAMYCIN INJ 900 MG/50 ML PREMIX IV STA (11:21)
[2022-02-09] MEDS ORDERED: LEVOFLOXACIN INJ 750 MG/150 ML PREMIX IV STA (11:21)
[2022-02-09 12:11] LABS: Squamous Epithelial Cell,Urine Occasional /HPF (0-10)
[2022-02-09 12:25] LABS: RBC,Urine 12 /HPF (0-4)
[2022-02-09 12:29] LABS: Bilirubin,Urine Negative (Negative); Blood, Urine Moderate mg/dL (Negative); Glucose,Urine (UA) >=1000 mg/dL (Negative); Ketones,Urine Negative (Negative); Nitrite,Urine Negative (Negative); Protein,Urine 30 mg/dL (Negative); Urine Appearance Cloudy (Clear); Urine Color Yellow (Yellow); Urine Specific Gravity 1.015 (1.001-1.035); Urine Urobilinogen 0.2 eU/dL (<2.0); Urine pH 5.5 (4.5-8.0)
[2022-02-09 12:53] LABS: Albumin 3.2 G/DL (3.4-5.0); Bilirubin,Total 0.8 MG/DL (0.20-1.00); Calcium 9.3 MG/DL (8.5-10.1); Osmolality,Calculated 280.5 MOS/KG (273-304); Potassium 4.6 MMOL/L (3.5-5.1); Total Protein 7.8 G/DL (6.4-8.2)
[2022-02-09] MEDS ORDERED: ACETAMINOPHEN 325 MG TABLET PO PRN (13:14)
[2022-02-09] MEDS ORDERED: GLUCAGON 1 MG VIAL IM PRN (13:14)
[2022-02-09] MEDS ORDERED: ONDANSETRON 4 MG/2 ML VIAL IV PRN (13:14)
[2022-02-09] MEDS ORDERED: DEXTROSE 50% 25 GM/50 ML VIAL IV PRN (13:14)
[2022-02-09] MEDS ORDERED: BISACODYL 5 MG TABLET PO PRN (13:14)
[2022-02-09] MEDS ORDERED: hydrALAZINE 20 MG/1 ML VIAL IV PRN (13:14)
[2022-02-09] MEDS ORDERED: DEXTROSE 10% 250 ML BAG IV PRN (13:14)
[2022-02-09] MEDS ORDERED: INSULIN REGULAR 100 UNIT/ML IV STA (13:18)
[2022-02-09] MEDS ORDERED: FLUTICASONE 50 MCG NASAL SPRAY 16 GM BOTTLE BOTH NARES PRN (13:19)
[2022-02-09] MEDS ORDERED: SODIUM CHLORIDE 0.9% 1,000 ML IV ONE (13:29)
[2022-02-09 14:00] LABS: Calcium 8.8 MG/DL (8.5-10.1); Osmolality,Calculated 294.1 MOS/KG (273-304); Potassium 3.8 MMOL/L (3.5-5.1)
[2022-02-09] MEDS: SODIUM CHLORIDE 0.9% 1,000 ML IV SCH ×2 (15:55→20:51)
[2022-02-09] MEDS ORDERED: INSULIN GLARGINE 100 UNIT/ML SUBCUT SCH (16:30)
[2022-02-09] MEDS: INSULIN LISPRO 100 UNIT/ML SUBCUT SCH ×2 (17:32→22:37)
[2022-02-09] MEDS: cefTRIAXone 1,000 MG in SODIUM CHLORIDE 0.9% 100 ML IV SCH (18:13)
[2022-02-09] MEDS: TAMSULOSIN 0.4 MG CAPSULE PO SCH (20:50)
[2022-02-09] MEDS: INSULIN GLARGINE 100 UNIT/ML SUBCUT SCH (20:50)
[2022-02-09] MEDS: DOCUSATE SODIUM 100 MG CAPSULE PO SCH (20:51)
[2022-02-09] MEDS ORDERED: ENOXAPARIN 40 MG/0.4 ML SYRINGE SUBCUT SCH (21:00)
[2022-02-10] MEDS: SODIUM CHLORIDE 0.9% 1,000 ML IV SCH ×3 (02:09→13:50)
[2022-02-10 05:16] LABS: Basophils # 0.1 10*3/uL (0.0-0.2); Basophils % 0.4 % (0.0-0.8); Eosinophils # 0.3 10*3/uL (0.0-0.87); Eosinophils % 2.5 % (0.00-10.9); Hematocrit 36.2 VOL% (42.0-52.0); Hemoglobin 12.1 GM/DL (14.0-18.0); Immature Granulocytes % 0.7 %; Immature Granulocytes Absolute 0.09 #; Lymphocytes # 1.5 10*3/uL (1.4-4.0); Lymphocytes % 11.4 % (21.2-54.2); Mean Corpuscular HGB Conc 33.4 GM/DL (32-36); Mean Corpuscular Volume 87.4 FL (87-102); Mean Platelet Volume 10.9 FL (9.6-12.0); Monocytes # 1.6 10*3/uL (0.11-0.8); Monocytes % 11.8 % (1.7-12.7); Neutrophils % 73.2 % (38.7-73.9); Platelet Count 364 T/CUMM (130-400); Red Blood Count 4.14 MC/CUMM (3.8-5.5); Red Cell Distribution Width 12.6 % (9.3-17.3); White Blood Count 13.4 T/CUMM (4-12)
[2022-02-10 05:46] LABS: Albumin 2.6 G/DL (3.4-5.0); Bilirubin,Total 0.7 MG/DL (0.20-1.00); Calcium 8.8 MG/DL (8.5-10.1); Osmolality,Calculated 287.3 MOS/KG (273-304); Total Protein 6.4 G/DL (6.4-8.2)
[2022-02-10] MEDS: INSULIN LISPRO 100 UNIT/ML SUBCUT SCH ×4 (07:55→21:06)
[2022-02-10] MEDS: TAMSULOSIN 0.4 MG CAPSULE PO SCH ×2 (08:01→21:06)
[2022-02-10] MEDS: DOCUSATE SODIUM 100 MG CAPSULE PO SCH ×2 (08:01→21:05)
[2022-02-10] MEDS: cefTRIAXone 1,000 MG in SODIUM CHLORIDE 0.9% 100 ML IV SCH (08:01)
[2022-02-10] MEDS: amLODIPine 10 MG TABLET PO SCH (08:01)
[2022-02-10] MEDS: CHOLECALCIFEROL 5,000 UNIT TABLET PO SCH (08:01)
[2022-02-10] MEDS: allopurinoL 100 MG TABLET PO SCH (08:02)
[2022-02-10] MEDS ORDERED: TAMSULOSIN 0.4 MG CAPSULE PO SCH (09:00)
[2022-02-10] MEDS: INSULIN GLARGINE 100 UNIT/ML SUBCUT SCH (21:06)
[2022-02-11] MEDS: SODIUM CHLORIDE 0.9% 1,000 ML IV SCH ×2 (02:20→06:10)
[2022-02-11 06:16] LABS: Basophils % 0.3 % (0.0-0.8); Eosinophils # 0.3 10*3/uL (0.0-0.87); Eosinophils % 1.8 % (0.00-10.9); Hematocrit 35.7 VOL% (42.0-52.0); Hemoglobin 11.9 GM/DL (14.0-18.0); Immature Granulocytes % 0.7 %; Lymphocytes # 1.3 10*3/uL (1.4-4.0); Lymphocytes % 8.8 % (21.2-54.2); Mean Corpuscular HGB Conc 33.3 GM/DL (32-36); Mean Corpuscular Volume 86.9 FL (87-102); Mean Platelet Volume 10.4 FL (9.6-12.0); Monocytes # 1.5 10*3/uL (0.11-0.8); Monocytes % 10.7 % (1.7-12.7); Neutrophils % 77.7 % (38.7-73.9); Platelet Count 337 T/CUMM (130-400); Red Blood Count 4.11 MC/CUMM (3.8-5.5); Red Cell Distribution Width 12.9 % (9.3-17.3); White Blood Count 14.3 T/CUMM (4-12)
[2022-02-11 06:31] LABS: Calcium 8.4 MG/DL (8.5-10.1); Potassium 3.5 MMOL/L (3.5-5.1)
[2022-02-11] MEDS ORDERED: cefTRIAXone 2,000 MG in SODIUM CHLORIDE 0.9% 100 ML IV SCH ×2 (08:17→10:00)
[2022-02-11] MEDS: TAMSULOSIN 0.4 MG CAPSULE PO SCH (09:02)
[2022-02-11] MEDS: CHOLECALCIFEROL 5,000 UNIT TABLET PO SCH (09:02)
[2022-02-11] MEDS: amLODIPine 10 MG TABLET PO SCH (09:03)
[2022-02-11] MEDS: allopurinoL 100 MG TABLET PO SCH (09:03)
[2022-02-11] MEDS: DOCUSATE SODIUM 100 MG CAPSULE PO SCH (09:03)
[2022-02-11] MEDS: cefTRIAXone 1,000 MG in SODIUM CHLORIDE 0.9% 100 ML IV SCH (09:14)
[2022-02-11] MEDS: INSULIN LISPRO 100 UNIT/ML SUBCUT SCH ×3 (09:18→17:13)
[2022-02-11] MEDS ORDERED: LIDOCAINE 2% TOP JELLY 20 ML VIAL INTRAURETH ONE (09:20)
[2022-02-11] MEDS ORDERED: MAGNESIUM SULF RIDER 2 GM/50 ML PREMIX IV ONE (10:30)
[2022-02-11 17:46] VITALS: BP 144/75
[2022-02-12] MEDS ORDERED: cefTRIAXone 2,000 MG in SODIUM CHLORIDE 0.9% 100 ML IV SCH (13:00)
== END 2022-02-11 18:55 | disposition home or self-care (01) | DRG 726 ==
LOC: N.ED 09:12 → N.EDINP 13:14 → SUATTDRO 13:14 → N.3E 16:27
PROVIDERS: ADMIT Internal Medicine; ATTEND Internal Medicine